=== PATIENT | male | born 1940 | race Caucasian/White ===

== ENCOUNTER → 2016-12-15 | Outpatient (CLI) | payer BC ==
[~2016-12-15] MED LIST: ALBU18002 INH; ALPR-412 PO; AMLO-114 PO; AMLO2.5T PO; AMR2 PO; ASPI81TA28 PO; ATOR-24 PO; ATOR-26 PO; AVD5 PO; CHOL2000 PO; CIPR-255 PO; CLOP1TAB54 PO; CYAN10005 PO; FLUT0.0529 NAE; GLC/500 PO; INSDGI SC; LISI-725 PO; LISI40TA PO; LORA10TA5 PO; METO-217 PO; MISCTAB30 PO; NVLGI/PEN; PANT40TA PO; SPRIN/30 INH; TAMS0.4C38 PO; TAMS0.4C59 PO; TIOTCAP INH; XNX25 PO; janumet PO; osteo biflex PO
[2016-12-15 13:32] LABS: ESTIMATED AVERAGE GLUCOSE 194 mg/dl; HA1C FLAG Normal (Normal)
[2016-12-15 13:42] LABS: BLOOD UREA NITROGEN 15 mg/dl (7-18); BUN/CREATININE RATIO 11.8 (10-20); CALCIUM 9.1 mg/dl (8.5-10.1); CARBON DIOXIDE 27 mmol/L (21-32); CHLORIDE 106 mmol/L (98-107); GLUCOSE 114 mg/dl (70-99); POTASSIUM 3.9 mmol/L (3.5-5.1); SODIUM 142 mmol/L (136-145)
== END | disposition home or self-care (01) ==
LOC: C.LABMFLN 07:50
PROVIDERS: ATTEND Family Medicine
DX: I10 Essential (primary) hypertension (principal); E11.51 Type 2 diabetes mellitus with diabetic peripheral angiopathy without gangrene

== ENCOUNTER 2017-02-03 10:40 | Inpatient (IN) | payer BC, OTHER ==
[~2017-02-03] VITALS: Ht 175.3 cm; Wt 78.8 kg
[~2017-02-03 10:40] MED LIST changes: -ALBU18002 INH; -ALPR-412 PO; -AMLO2.5T PO; -ATOR-26 PO; -CHOL2000 PO; -CYAN10005 PO; -GLC/500 PO; -INSDGI SC; -LISI-725 PO; -MISCTAB30 PO; -NVLGI/PEN; -SPRIN/30 INH; -TAMS0.4C38 PO
[2017-02-03 11:22] LABS: MEAN CELL VOLUME 89.7 fL (80-100); MEAN CORPUSCULAR HEMOGLOBIN 30.5 pg (25-34); MEAN PLATELET VOLUME 11.4 fL (7.4-10.4); PLATELET COUNT 217 K/uL (130-400); RED BLOOD COUNT 4.46 M/uL (4.7-6.1); WHITE BLOOD COUNT 6.93 K/uL (4.8-10.8)
[2017-02-03 11:31] LABS: PROTHROMBIN TIME (PATIENT) 10.7 SECONDS (9.0-12.0)
--- NOTE | 2017-02-03 11:31 | DIAGNOSTIC IMAGING REPORT ---
CHEST ONE VIEW PORTABLE CLINICAL HISTORY: chest pain and SOB dyspnea COMPARISON STUDY: 07/11/2013 FINDINGS: The bones soft tissues and hemidiaphragms are normal. The cardiomediastinal silhouette is normal. The lungs are clear. The pulmonary vasculature is normal. IMPRESSION: Negative chest. Electronically signed by: Alexx Berger M.D. 02/03/2017 11:29 AM Dictated Date/Time: 02/03/2017 11:29 AM
[2017-02-03 11:41] LABS: BUN/CREATININE RATIO 12.7 (10-20); CALCIUM 8.7 mg/dl (8.5-10.1); CREATININE 1.4 mg/dl (0.60-1.40); POTASSIUM 3.7 mmol/L (3.5-5.1)
[2017-02-03 11:50] LABS: ALB/GLOB RATIO 1.1 (0.9-2); CKMB/CK RATIO 2.1 (0-3.0)
[2017-02-03] MEDS ORDERED: TAMS0.4C38 PO (12:36)
[2017-02-03] MEDS ORDERED: ATOR-26 PO (12:36)
[2017-02-03] MEDS ORDERED: SPRIN/30 INH (12:36)
[2017-02-03] MEDS ORDERED: ALPR-412 PO (12:36)
[2017-02-03] MEDS ORDERED: AMLO2.5T PO (12:36)
[2017-02-03] MEDS ORDERED: LISI-725 PO (12:36)
[2017-02-03] MEDS ORDERED: NVLGI/PEN (12:37)
[2017-02-03] MEDS ORDERED: CYAN10005 PO (12:37)
[2017-02-03] MEDS ORDERED: MISCTAB30 PO (12:37)
[2017-02-03] MEDS ORDERED: INSDGI SC (12:37)
[2017-02-03] MEDS ORDERED: ALBU18002 INH (12:37)
[2017-02-03] MEDS ORDERED: CHOL2000 PO (12:37)
[2017-02-03] MEDS ORDERED: GLC/500 PO (12:37)
[2017-02-03] MEDS ORDERED: ASPIRIN 81 MG CHEW PO STA ×2 (12:47→13:29)
--- NOTE | 2017-02-03 12:52 | EMERGENCY ROOM VISIT NOTE ---
History Report prepared by Rebecca: Yasemin Browning Under the Supervision of: Dr. Isis Conner M.D. First contact with patient: 12:23 Chief Complaint: CARDIAC ASSESSMENT Stated Complaint: EDEMA IN FEET, ANKLES - TIGHTNESS IN CHEST Nursing Triage Summary: pt to the ED with c/o chest pain and SOB History of Present Illness The patient is a 76 year old male who presents to the Emergency Room with complaints of persistent chest discomfort that began last night. He describes it as a tightness. Last night, he had some aching in his left arm and tingling in the fingertips of his left hand as well. He develops some increased chest pain when he takes deep breaths. Recently, he has had some increased swelling in his lower extremities from his calves down through his feet. He denies recent long trips. He does not have a history of heart disease or blood clots. He has had multiple stress tests in the past which were normal. He took 81 mg Aspirin this morning. 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 He has a history of bladder cancer and skin cancer. Source of History: patient Onset: last night Position: chest Quality: other (tightness) Timing: other (persistent) Note: Other symptoms: bilateral leg swelling, achiness in left arm, tingling in left fingers Review of Systems See HPI for pertinent positives & negatives. A total of 10 systems reviewed and were otherwise negative. Past Medical & Surgical Medical Problems: (1) Bladder cancer (2) Chest pain radiating to arm (3) Diabetes (4) Skin cancer Family History No pertinent family history stated. Social History Smoking Status: Never Smoker Marital Status: Housing Status: lives with significant other Occupation Status: retired Current/Historical Medications Scheduled Amlodipine (Norvasc), 2.5 MG PO DAILY Aspirin (Aspirin Ec), 81 MG PO QAM Atorvastatin (Lipitor), 80 MG PO DAILY Cholecalciferol (Vitamin D3), 1 CAP PO QAM Cyanocobalamin (Vitamin B-12), 1,000 MCG PO QAM Insulin Glargine (Lantus), 25 UNITS SC QPM Lisinopril (Zestril), 20 MG PO DAILY Metformin Hcl (Glucophage), 500 MG PO BID Metoprolol Succinate (Toprol Xl), 50 MG PO BID Misc Natural Products (Osteo Bi-Flex Joint Shiel), 1 TAB PO BID Pantoprazole (Protonix), 40 MG PO BID Tamsulosin Hcl (Flomax), 0.4 MG PO DAILY Tiotropium [place] (Spiriva Handihaler), 1 CAP INH DAILY Scheduled PRN Alprazolam (Alprazolam), 1 TAB PO DAILY PRN for Anxiety Loratadine (Claritin), 10 MG PO DAILY PRN Miscellaneous Medications Albuterol Sulfate (Proair Respiclick), 2 PUFF INH Insulin Aspart (Novolog Flexpen) Allergies Coded Allergies: Penicillins (Verified Allergy, Intermediate, HIVES, 02/03/17) Tetracycline (Verified Adverse Reaction, Intermediate, SEVERE DIARRHEA, ) Atorvastatin (Verified Adverse Reaction, Unknown, UNKNOWN, 02/03/17) PT STILL TAKES Physical Exam Vital Signs Date Time Temp Pulse Resp B/P Pulse Ox O2 Delivery O2 Flow Rate FiO2 02/03/17 13:13 64 16 163/81 98 Nasal Cannula 2.0 02/03/17 11:56 98 Nasal Cannula 2.0 02/03/17 11:55 88 Room Air 02/03/17 11:14 Room Air 02/03/17 11:12 68 18 161/73 94 02/03/17 11:03 71 02/03/17 10:47 36.7 72 18 180/81 96 Room Air Pain Rating (0-10): 0 Physical Exam Vital signs reviewed. General: Elderly, well-appearing 76 year old male, in no significant distress, on nasal canula oxygen. HEENT: No scleral icterus, PERRLA, neck supple. Atraumatic. Cardiovascular: Regular rate and rhythm, no extra sounds. Pulmonary: Clear to auscultation bilaterally, normal work of breathing. Abdomen: Soft, nontender, nondistended, positive bowel sounds. Musculoskeletal: Atraumatic, no peripheral edema. Neurologic: Patient awake alert and oriented x 3 Skin: Warm, dry, no rash Medical Decision & Procedures ER Provider Diagnostic Interpretation: Radiology results as stated below per my review and radiologist interpretation: CHEST ONE VIEW PORTABLE CLINICAL HISTORY: chest pain and SOB dyspnea COMPARISON STUDY: 07/11/2013 FINDINGS: The bones soft tissues and hemidiaphragms are normal. The cardiomediastinal silhouette is normal. The lungs are clear. The pulmonary vasculature is normal. IMPRESSION: Negative chest. Electronically signed by: Alexx Berger M.D. 02/03/2017 11:29 AM Dictated Date/Time: 02/03/2017 11:29 AM BILATERAL LOWER EXTREMITY VENOUS DOPPLER CLINICAL HISTORY: Bilateral lower extremity edema. Chest tightness. COMPARISON STUDY: No previous studies for comparison. TECHNIQUE: Sonography of the deep venous system of the bilateral lower extremities was performed. Compression and augmentation were evaluated. FINDINGS: The bilateral common femoral, superficial femoral and popliteal veins were compressible. Augmentation was normal. Flow was shown within the deep calf vessels. IMPRESSION: No evidence of deep venous thrombus within the bilateral lower extremities. Electronically signed by: Nilay Roman M.D. 02/03/2017 2:02 PM Dictated Date/Time: 02/03/2017 2:01 PM Laboratory Results Test 02/03/17 11:05 02/03/17 12:57 Total Bilirubin 0.6 mg/dl (0.2-1) Aspartate Amino Transf (AST/SGOT) 10 U/L (15-37) Alanine Aminotransferase (ALT/SGPT) 19 U/L (12-78) Alkaline Phosphatase 94 U/L (45-117) Total Protein 6.7 gm/dl (6.4-8.2) Albumin 3.5 gm/dl (3.4-5.0) Globulin 3.2 gm/dl (2.5-4.0) Albumin/Globulin Ratio 1.1 (0.9-2) Bedside D-Dimer 432 ng/mlFEU (0-450) Bedside Troponin I 0.000 ng/ml (0-0.045) Laboratory results per my review. 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 The patient was evaluated in room C2. A complete history and physical examination was performed. 1329: Ordered Aspirin 243 mg PO. 1500: Upon reevaluation, the patient is resting comfortably. I discussed laboratory and radiographic results with him. He verbalized agreement of the treatment plan. 1519: I discussed the case with Dr. [facility]. The patient will be evaluated for further management. Medical Decision Differential diagnosis: Acute coronary syndrome, pulmonary embolus, aortic dissection, musculoskeletal pain, pneumonia, pleural effusion, pneumothorax This patient was evaluated and appeared to be in no significant distress. IV access was obtained and laboratory work was drawn. The patient was given 243 mg of aspirin acute taken 1 baby aspirin prior to arrival. Laboratory work reveals negative cardiac enzymes. EKG reveals no acute ischemic change. Chest x-ray was obtained and reveals no focal infiltrate or acute failure. Dopplers of the bilateral lower extremities are negative for DVT. The patient did have some hypoxia to 88% on room air, which is new. Due to the patient's history of vasculopathy and his complaints of chest pain with radiation, the patient will be evaluated by the hospitalist service for further management. He is aware of the plan and agrees. Consults Time Called: 1505 Consulting Physician: Dr. Mike DUGAN Hospitalist Returned Call: [phone] I discussed the case with him. The patient will be evaluated for further management. Impression Primary Impression: Chest pain radiating to arm Additional Impression: Hypoxia Scribe Attestation The scribe's documentation has been prepared under my direction and personally reviewed by me in its entirety. I confirm that the note above accurately reflects all work, treatment, procedures, and medical decision making performed by me. Departure Information Dispostion Being Evaluated By Hospitalist Referrals Benitez Lau M.D. (PCP) Patient Instructions [facility] Problem Qualifiers
--- NOTE | 2017-02-03 14:03 | DIAGNOSTIC IMAGING REPORT ---
BILATERAL LOWER EXTREMITY VENOUS DOPPLER CLINICAL HISTORY: Bilateral lower extremity edema. Chest tightness. COMPARISON STUDY: No previous studies for comparison. TECHNIQUE: Sonography of the deep venous system of the bilateral lower extremities was performed. Compression and augmentation were evaluated. FINDINGS: The bilateral common femoral, superficial femoral and popliteal veins were compressible. Augmentation was normal. Flow was shown within the deep calf vessels. IMPRESSION: No evidence of deep venous thrombus within the bilateral lower extremities. Electronically signed by: Nilay Roman M.D. 02/03/2017 2:02 PM Dictated Date/Time: 02/03/2017 2:01 PM
[2017-02-03] MEDS ORDERED: LORATADINE 10 MG TAB PO PRN (15:45)
[2017-02-03] MEDS ORDERED: ACETAMINOPHEN 325 MG TAB PO PRN (15:45)
[2017-02-03] MEDS ORDERED: NITROGLYCERIN 0.4 MG SL PER TAB CHARGE SL PRN (15:45)
[2017-02-03] MEDS ORDERED: ZOLPIDEM TARTRATE 5 MG TAB PO PRN (15:45)
[2017-02-03] MEDS ORDERED: ALBUTEROL HFA 8 GM INHALER INH PRN (15:45)
[2017-02-03] MEDS ORDERED: ALPRAZOLAM 0.25 MG TAB PO PRN (15:45)
[2017-02-03] MEDS ORDERED: GLUCAGON FOR INJ 1 MG VIAL SQ PRN (16:00)
[2017-02-03] MEDS ORDERED: DEXTROSE 50% 50 ML SYR IV PRN (16:00)
[2017-02-03] MEDS ORDERED: ONDANSETRON INJ 2 MG/ML 2 ML VIAL IV PRN (16:00)
[2017-02-03] MEDS ORDERED: GLUCOSE 10 TABS/TUBE PO PRN (16:00)
[2017-02-03] MEDS ORDERED: GLUCOSE 40% GEL 15 GM TUBE PO PRN (16:00)
[2017-02-03 17:54] VITALS: BP 159/90; PULSE 91; TEMP 36.9; Ht 175.3 cm; Wt 78.8 kg
--- NOTE | 2017-02-03 17:57 | DIAGNOSTIC IMAGING REPORT ---
LEFT UPPER EXTREMITY ARTERIAL DOPPLER STUDY HISTORY: carotid to LUE bypass, tingling in left hand COMPARISON STUDY: None. FINDINGS: Normal velocities and waveforms within the left common carotid artery. There is retrograde flow within the left vertebral artery. Monophasic but normal velocity waveforms seen within the left subclavian, axillary, and brachial arteries. Monophasic low velocity waveforms seen within the radial artery of 14 cm/s in the ulnar artery of 12 cm/s. IMPRESSION: 1. Monophasic but normal velocity waveforms seen within the left subclavian, axillary, brachial arteries. This could be due to the bypass. 2. Monophasic and low velocity waveforms seen within the radial and ulnar artery suggestive of diminished flow. 3. Retrograde flow within the left vertebral artery. Electronically signed by: Antione Santos M.D. 02/03/2017 5:56 PM Dictated Date/Time: 02/03/2017 5:53 PM
--- NOTE | 2017-02-03 18:04 | DIAGNOSTIC IMAGING REPORT ---
BILATERAL CAROTID DOPPLER STUDY HISTORY: Right arm numbness. carotid to axillary and to subclavian bypass COMPARISON: None. TECHNIQUE: Real-time, grayscale, and color Doppler sonography of the carotid arteries was performed. Imaging reviewed in the transverse and longitudinal planes. All measurements were calculated based on NASCET criteria. FINDINGS: Retrograde flow within the left vertebral artery. Antegrade flow in the right vertebral artery. Mild calcified plaque within the bilateral carotid bifurcations. The peak systolic velocity within the right ICA is 108 cm/s. The right systolic ratio is 1.3. The peak systolic velocity within the left ICA is 97 cm/s. The left systolic ratio is 1.1. IMPRESSION: No hemodynamically significant stenosis seen within the carotid arteries. Retrograde flow within the left vertebral artery. Electronically signed by: Antione Santos M.D. 02/03/2017 6:02 PM Dictated Date/Time: 02/03/2017 6:00 PM
[2017-02-03 18:08] LABS: CKMB/CK RATIO 2.7 (0-3.0)
[2017-02-03 20:05] VITALS: BP 144/65; PULSE 70; TEMP 36.4; O2SAT 96
[2017-02-03] MEDS ORDERED: INSULIN GLARGINE SOLOSTAR 100 UNITS/ML 3 ML PEN SC SCH (21:00)
--- NOTE | 2017-02-03 21:03 | History and Physical ---
History & Physical Date & Time of Service: Feb 03, 2017 at 20:47 Chief Complaint: Chest Pain Radiating To Arm Primary Care Physician: Benitez Lau M.D. History of Present Illness Source: patient, spouse The patient is a 76-year-old male who presents to emergency department with chest tightness, accompanied by left arm aching and left hand tingling that began the previous night. He also recently developed some swelling in his lower extremities that does improve when he is off his feet. He has not had any recent travel, does not have any significant salt in his diet, and does not have a sedentary lifestyle. 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 Past Medical/Surgical History Medical Problems: (1) Bladder cancer Status: Resolved (2) Diabetes Status: Chronic (3) Skin cancer Status: Resolved Social History Smoking Status: Former Smoker Smokeless Tobacco Use: No Alcohol Use: none Drug Use: none Marital Status: Housing status: lives with family Occupational Status: retired Multi-Drug Resistant Organisms History of MDRO: No Allergies Coded Allergies: Penicillins (Verified Allergy, Intermediate, HIVES, 02/03/17) Tetracycline (Verified Adverse Reaction, Intermediate, SEVERE DIARRHEA, ) Atorvastatin (Verified Adverse Reaction, Unknown, UNKNOWN, 02/03/17) PT STILL TAKES Home Medications Scheduled Amlodipine (Norvasc), 2.5 MG PO DAILY Aspirin (Aspirin Ec), 81 MG PO QAM Atorvastatin (Lipitor), 80 MG PO DAILY Cholecalciferol (Vitamin D3), 1 CAP PO QAM Cyanocobalamin (Vitamin B-12), 1,000 MCG PO QAM Insulin Glargine (Lantus), 25 UNITS SC QPM Lisinopril (Zestril), 20 MG PO DAILY Metformin Hcl (Glucophage), 500 MG PO BID Metoprolol Succinate (Toprol Xl), 50 MG PO BID Misc Natural Products (Osteo Bi-Flex Joint Shiel), 1 TAB PO BID Pantoprazole (Protonix), 40 MG PO BID Tamsulosin Hcl (Flomax), 0.4 MG PO DAILY Tiotropium [place] (Spiriva Handihaler), 1 CAP INH DAILY Scheduled PRN Alprazolam (Alprazolam), 1 TAB PO DAILY PRN for Anxiety Loratadine (Claritin), 10 MG PO DAILY PRN Miscellaneous Medications Albuterol Sulfate (Proair Respiclick), 2 PUFF INH Insulin Aspart (Novolog Flexpen) Review of Systems The patient denies palpitations, cough, vision change, hearing change, sore throat, fevers, chills, sweats, weight change, fatigue, nausea, vomiting, abdominal pain, pelvic pain, blood in urine or stool, dysuria, urinary frequency or urgency, lightheadedness, dizziness, headache, memory loss, rash, abnormal bruising or bleeding, imbalance, focal or generalized weakness, numbness or tingling in legs, arthralgias or myalgias, back or neck pain, night sweats, or allergy symptoms. The review of systems is otherwise negative other than for that already noted above, and at least 10 systems have been reviewed. Physical Exam Vital Signs Date Time Temp Pulse Resp B/P Pulse Ox O2 Delivery O2 Flow Rate FiO2 02/03/17 20:05 36.4 70 17 144/65 96 Room Air 02/03/17 18:10 88 18 98 02/03/17 17:54 36.9 91 18 159/90 Room Air 02/03/17 16:00 67 18 152/78 98 Nasal Cannula 2.0 02/03/17 13:13 64 16 163/81 98 Nasal Cannula 2.0 02/03/17 11:56 98 Nasal Cannula 2.0 02/03/17 11:55 88 Room Air 02/03/17 11:14 Room Air 02/03/17 11:12 68 18 161/73 94 02/03/17 11:03 71 02/03/17 10:47 36.7 72 18 180/81 96 Room Air The patient is awake, well-developed and adequately nourished, alert and oriented 3, normocephalic and atraumatic, lying in bed and in no acute distress. HEENT--PERRL, EOMI, mucous membranes and oropharynx dry. Neck--supple, no JVD or bruits, thyroid normal, trachea midline, no adenopathy. Heart--normal S1 and S2, no extra beats, no murmurs, rubs or gallops. Lungs--clear bilaterally with good air movement, no respiratory distress, no accessory muscle use. Abdomen--normal bowel sounds and soft, nontender and nondistended, no hernias or masses, no organomegaly. Extremities--no cyanosis, clubbing. There is bilaterally trace pretibial and pedal pitting Edema. There are good distal pulses b/l. Dermatologic--normal skin turgor, normal color, warm and dry, no abnormal lymph nodes, no rash. Neurologic--cranial nerves II through XII grossly intact, motor and sensory examination normal. Rheumatologic--normal range of motion, nontender, muscles and joints. Psychiatric--normal affect. Diagnostics Laboratory Results Results Past 24 Hours Test 02/03/17 11:05 02/03/17 11:12 02/03/17 12:57 02/03/17 16:06 Range/Units White Blood Count 6.93 4.8-10.8 K/uL Red Blood Count 4.46 4.7-6.1 M/uL Hemoglobin 13.6 14.0-18.0 g/dL Hematocrit 40.0 42-52 % Mean Corpuscular Volume 89.7 80-100 fL Mean Corpuscular Hemoglobin 30.5 25-34 pg Mean Corpuscular Hemoglobin Concent 34.0 32-36 g/dl RDW Standard Deviation 43.3 36.4-46.3 fL RDW Coefficient of Variation 13.2 11.5-14.5 % Platelet Count 217 130-400 K/uL Mean Platelet Volume 11.4 7.4-10.4 fL Prothrombin Time 10.7 9.0-12.0 SECONDS Prothromb Time International Ratio 1.0 0.9-1.1 Activated Partial Thromboplast Time 26.3 21.0-31.0 SECONDS Partial Thromboplastin Ratio 1.0 Sodium Level 141 136-145 mmol/L Potassium Level 3.7 3.5-5.1 mmol/L Chloride Level 106 98-107 mmol/L Carbon Dioxide Level 31 21-32 mmol/L Anion Gap 4.0 3-11 mmol/L Blood Urea Nitrogen 18 7-18 mg/dl Creatinine 1.40 0.60-1.40 mg/dl Est Creatinine Clear Calc Drug Dose 45.6 ml/min Estimated GFR () 56.6 Estimated GFR (Non- 48.8 BUN/Creatinine Ratio 12.7 10-20 Random Glucose 235 70-99 mg/dl Calcium Level 8.7 8.5-10.1 mg/dl Total Bilirubin 0.6 0.2-1 mg/dl Aspartate Amino Transf (AST/SGOT) 10 15-37 U/L Alanine Aminotransferase (ALT/SGPT) 19 12-78 U/L Alkaline Phosphatase 94 45-117 U/L Total Creatine Kinase 48 39-308 U/L Creatine Kinase MB 1.0 0.5-3.6 ng/ml Creatine Kinase MB Ratio 2.1 0-3.0 Total Protein 6.7 6.4-8.2 gm/dl Albumin 3.5 3.4-5.0 gm/dl Globulin 3.2 2.5-4.0 gm/dl Albumin/Globulin Ratio 1.1 0.9-2 Bedside Troponin I 0.000 0.000 0-0.045 ng/ml Bedside D-Dimer 432 0-450 ng/mlFEU Bedside Glucose 116 70-99 mg/dl Test 02/03/17 17:32 02/03/17 20:30 Range/Units Total Creatine Kinase 41 39-308 U/L Creatine Kinase MB 1.1 0.5-3.6 ng/ml Creatine Kinase MB Ratio 2.7 0-3.0 Troponin I < 0.015 0-0.045 ng/ml Bedside Glucose 197 70-99 mg/dl Diagnostic Radiology Patient Name: ERIKA CALLAHAN Unit Number: [id number] Dictated: 02/03/171128 Transcribed: 02/03/171128 MS Printed Date/Time: [~ rep prt dt]/[~ rep prt tm] [~ rep ct labl] - [~ rep ct ivnm] [facility] [place] [address] Dictated: 02/03/171128 Transcribed: 02/03/17 112 MS Printed Date/Time: [~ rep prt dt]/[~ rep prt tm] [~ rep ct labl] - [~ rep ct ivnm] CHEST ONE VIEW PORTABLE CLINICAL HISTORY: chest pain and SOB dyspnea COMPARISON STUDY: 07/11/2013 FINDINGS: The bones soft tissues and hemidiaphragms are normal. The cardiomediastinal silhouette is normal. The lungs are clear. The pulmonary vasculature is normal. IMPRESSION: Negative chest. Electronically signed by: Alexx Berger M.D. 02/03/2017 11:29 AM Dictated Date/Time: 02/03/2017 11:29 AM The status of this report is Signed. Draft = Not yet reviewed or approved by Radiologist. Signed = Reviewed and approved by Radiologist. <AttendingPhy></AttendingPhy> <FamilyPhy>Benitez Lau M.D.</FamilyPhy> < PrimaryPhy>Benitez Lau M.D.</PrimaryPhy> <UnitNumber>[id number]</UnitNumber> < VisitNumber>[id number]</VisitNumber> <PatientName>ERIKA CALLAHAN</PatientName > <DateOfBirth>1940</DateOfBirth> <Location>[facility]</Location> <ServiceDate> 02/03/17</ServiceDate> <MNE>ESINDI</MNE> <OrderingPhy>ED, PROTOCOL</OrderingPhy > <OrderingPhyMNE>f rep ord dr vaca</OrderingPhyMNE> <DictatingPhyMNE>f rep dict dr vaca</DictatingPhyMNE> <CCListMNE>f rep ct mne</CCListMNE> <AdmittingPhyMNE>f pt admit dr vaca</AdmittingPhyMNE> <AttendingPhyMNE>f pt attend dr vaca</ AttendingPhyMNE> <ConsultingPhyMNE>f pt consult dr vaca</ConsultingPhyMNE> <FamilyPhyMNE>f pt fam dr vaca</FamilyPhyMNE> <OtherPhyMNE>f pt other dr vaca</OtherPhyMNE> < PrimaryPhyMNE>f pt prim care dr vaca</PrimaryPhyMNE> <ReferringPhyMNE>f pt referring dr vaca</ReferringPhyMNE> Patient Name: ERIKA CALLAHAN Unit Number: [id number] Dictated: 02/03/17 140 Transcribed: 02/03/17 140 JA Printed Date/Time: [~ rep prt dt]/[~ rep prt tm] [~ rep ct labl] - [~ rep ct ivnm] [facility] [place] [address] Dictated: 02/03/17 140 Transcribed: 02/03/17 1401 JA Printed Date/Time: [~ rep prt dt]/[~ rep prt tm] [~ rep ct labl] - [~ rep ct ivnm] [~ rep ct add3]] BILATERAL LOWER EXTREMITY VENOUS DOPPLER CLINICAL HISTORY: Bilateral lower extremity edema. Chest tightness. COMPARISON STUDY: No previous studies for comparison. TECHNIQUE: Sonography of the deep venous system of the bilateral lower extremities was performed. Compression and augmentation were evaluated. FINDINGS: The bilateral common femoral, superficial femoral and popliteal veins were compressible. Augmentation was normal. Flow was shown within the deep calf vessels. IMPRESSION: No evidence of deep venous thrombus within the bilateral lower extremities. Electronically signed by: Nilay Roman M.D. 02/03/2017 2:02 PM Dictated Date/Time: 02/03/2017 2:01 PM The status of this report is Signed. Draft = Not yet reviewed or approved by Radiologist. Signed = Reviewed and approved by Radiologist. <AttendingPhy></AttendingPhy> <FamilyPhy>Benitez Lau M.D.</FamilyPhy> < PrimaryPhy>Benitez Lau M.D.</PrimaryPhy> <UnitNumber>[id number]</UnitNumber> < VisitNumber>[id number]</VisitNumber> <PatientName>ERIKA CALLAHAN</PatientName > <DateOfBirth>1940</DateOfBirth> <Location>[facility]</Location> <ServiceDate> 02/03/17</ServiceDate> <MNE>ESINDI</MNE> <OrderingPhy>Isis Conner M.D. </OrderingPhy> <OrderingPhyMNE>f rep ord dr vaca</OrderingPhyMNE> < DictatingPhyMNE>f rep dict dr vaca</DictatingPhyMNE> <CCListMNE>f rep ct mne</ CCListMNE> <AdmittingPhyMNE>f pt admit dr vaca</AdmittingPhyMNE> <AttendingPhyMNE >f pt attend dr vaca</AttendingPhyMNE> <ConsultingPhyMNE>f pt consult dr vaca</ConsultingPhyMNE> <FamilyPhyMNE>f pt fam dr vaca</FamilyPhyMNE> <OtherPhyMNE>f pt other dr vaca</OtherPhyMNE> < PrimaryPhyMNE>f pt prim care dr vaca</PrimaryPhyMNE> <ReferringPhyMNE>f pt referring dr vaca</ReferringPhyMNE> Patient Name: ERIKA CALLAHAN Unit Number: [id number] Dictated: 02/03/171752 Transcribed: 02/03/171752 PAJ Printed Date/Time: [~ rep prt dt]/[~ rep prt tm] [~ rep ct labl] - [~ rep ct ivnm] [facility] [place] [address] Dictated: 02/03/171752 Transcribed: 02/03/171752 PAJ Printed Date/Time: [~ rep prt dt]/[~ rep prt tm] [~ rep ct labl] - [~ rep ct ivnm] LEFT UPPER EXTREMITY ARTERIAL DOPPLER STUDY HISTORY: carotid to LUE bypass, tingling in left hand COMPARISON STUDY: None. FINDINGS: Normal velocities and waveforms within the left common carotid artery. There is retrograde flow within the left vertebral artery. Monophasic but normal velocity waveforms seen within the left subclavian, axillary, and brachial arteries. Monophasic low velocity waveforms seen within the radial artery of 14 cm/s in the ulnar artery of 12 cm/s. IMPRESSION: 1. Monophasic but normal velocity waveforms seen within the left subclavian, axillary, brachial arteries. This could be due to the bypass. 2. Monophasic and low velocity waveforms seen within the radial and ulnar artery suggestive of diminished flow. 3. Retrograde flow within the left vertebral artery. Electronically signed by: Antione Santos M.D. 02/03/2017 5:56 PM Dictated Date/Time: 02/03/2017 5:53 PM The status of this report is Signed. Draft = Not yet reviewed or approved by Radiologist. Signed = Reviewed and approved by Radiologist. <AttendingPhy></AttendingPhy> <FamilyPhy>Benitez Lau M.D.</FamilyPhy> < PrimaryPhy>Benitez Lau M.D.</PrimaryPhy> <UnitNumber>[id number]</UnitNumber> < VisitNumber>[id number]</VisitNumber> <PatientName>ERIKA CALLAHAN</PatientName > <DateOfBirth>1940</DateOfBirth> <Location>[facility]</Location> <ServiceDate> 02/03/17</ServiceDate> <MNE>ESINDI</MNE> <OrderingPhy>Tal Mckeon M.D.< /OrderingPhy> <OrderingPhyMNE>f rep ord dr vaca</OrderingPhyMNE> <DictatingPhyMNE >f rep dict dr vaca</DictatingPhyMNE> <CCListMNE>f rep ct mne</CCListMNE> < AdmittingPhyMNE>f pt admit dr vaca</AdmittingPhyMNE> <AttendingPhyMNE>f pt attend dr vaca</AttendingPhyMNE> <ConsultingPhyMNE>f pt consult dr vaca</ConsultingPhyMNE> <FamilyPhyMNE>f pt fam dr vaca</FamilyPhyMNE> <OtherPhyMNE>f pt other dr vaca</OtherPhyMNE> < PrimaryPhyMNE>f pt prim care dr vaca</PrimaryPhyMNE> <ReferringPhyMNE>f pt referring dr vaca</ReferringPhyMNE> Patient Name: ERIKA CALLAHAN Unit Number: [id number] Dictated: 02/03/171799 Transcribed: 02/03/171799 PA Printed Date/Time: [~ rep prt dt]/[~ rep prt tm] [~ rep ct labl] - [~ rep ct ivnm] [facility] [place] [address] Dictated: 02/03/171799 Transcribed: 02/03/17 1800 PAJ Printed Date/Time: [~ rep prt dt]/[~ rep prt tm] [~ rep ct labl] - [~ rep ct ivnm] BILATERAL CAROTID DOPPLER STUDY HISTORY: Right arm numbness. carotid to axillary and to subclavian bypass COMPARISON: None. TECHNIQUE: Real-time, grayscale, and color Doppler sonography of the carotid arteries was performed. Imaging reviewed in the transverse and longitudinal planes. All measurements were calculated based on NASCET criteria. FINDINGS: Retrograde flow within the left vertebral artery. Antegrade flow in the right vertebral artery. Mild calcified plaque within the bilateral carotid bifurcations. The peak systolic velocity within the right ICA is 108 cm/s. The right systolic ratio is 1.3. The peak systolic velocity within the left ICA is 97 cm/s. The left systolic ratio is 1.1. IMPRESSION: No hemodynamically significant stenosis seen within the carotid arteries. Retrograde flow within the left vertebral artery. Electronically signed by: Antione Santos M.D. 02/03/2017 6:02 PM Dictated Date/Time: 02/03/2017 6:00 PM The status of this report is Signed. Draft = Not yet reviewed or approved by Radiologist. Signed = Reviewed and approved by Radiologist. <AttendingPhy></AttendingPhy> <FamilyPhy>Benitez Lau M.D.</FamilyPhy> < PrimaryPhy>Benitez Lau M.D.</PrimaryPhy> <UnitNumber>[id number]</UnitNumber> < VisitNumber>[id number]</VisitNumber> <PatientName>ERIKA CALLAHAN</PatientName > <DateOfBirth>1940</DateOfBirth> <[facility]> <ServiceDate> 02/03/17</ServiceDate> <MNE>ESINDI</MNE> <OrderingPhy>Tal Mckeon M.D.< /OrderingPhy> <OrderingPhyMNE>f rep ord dr vaca</OrderingPhyMNE> <DictatingPhyMNE >f rep dict dr vaca</DictatingPhyMNE> <CCListMNE>f rep ct [place]</CCListMNE> < AdmittingPhyMNE>f pt admit dr vaca</AdmittingPhyMNE> <AttendingPhyMNE>f pt attend dr vaca</AttendingPhyMNE> <ConsultingPhyMNE>f pt consult dr vaca</ConsultingPhyMNE> <FamilyPhyMNE>f pt fam dr vaca</FamilyPhyMNE> <OtherPhyMNE>f pt other dr vaca</OtherPhyMNE> < PrimaryPhyMNE>f pt prim care dr vaca</PrimaryPhyMNE> <ReferringPhyMNE>f pt referring dr vaca</ReferringPhyMNE> EKG EKG shows normal sinus rhythm at 70 bpm, old anterior IN and is new compared to 07/11/2013. Isolated Q-wave in lead III. Impression Assessment and Plan Chest tightness with radiation to left upper extremity/hypertension--the patient will be admitted to the telemetry unit, for serial cardiac enzymes, cardiac rhythm monitoring and a 2-D echocardiogram with Dopplers. He does have a history of 2 bypasses as discussed earlier and Doppler studies of the carotid arteries and left upper extremity circulation does report intact flow. His EKG does show a new anterior IN compared to previous EKG. If the above workup is negative, he will at the very least need a stress test prior to discharge, although he reports he's had several negative stress tests in the past, and therefore might be considered for a cardiac catheterization. We'll continue enteric-coated aspirin 81 mg by mouth daily, amlodipine 2.5 mg by mouth daily, lisinopril 20 mg by mouth daily, and metoprolol succinate 50 mg by mouth twice a day. If he develops a return of symptoms, he will need to be started on a heparin drip. Hypercholesterolemia--continue atorvastatin 80 mg by mouth daily. Diabetes mellitus--continue Lantus insulin 25 units subcutaneous every afternoon , and hold metformin 500 mg by mouth twice a day. Place on Accu-Cheks before meals and at bedtime with NovoLog coverage. GERD--continue pantoprazole 40 mg by mouth twice a day. BPH--continue tamsulosin 0.4 mg by mouth daily, will need to monitor closely if nitroglycerin or added to his regimen. Vitamin B12 deficiency--continue 1000 g by mouth every morning supplement. COPD--continue Spiriva 1 inhalation every morning, and pro-air HFA 2 puffs 4 times a day when necessary instead of Respiclick. Level of Care Telemetry Advanced Directives Existing Advance Directive: No Existing Living Will: Yes Existing Power of Roper Operator: Yes Resuscitation Status FULL RESUSCITATION VTE Prophylaxis VTE Risk Assessment Done? Y/N: Yes Risk Level: Moderate Given or contraindicated: SCD's
[2017-02-03] MEDS: PANTOprazole SOD 40 MG TAB PO SCH (21:06)
[2017-02-03] MEDS: METOPROLOL SUCC 50MG EXT REL TAB PO SCH (21:06)
[2017-02-03] MEDS: INSULIN ASPART 100 UNITS/ML 3 ML PEN SC SCH (21:08)
[2017-02-03 23:30] VITALS: BP 126/67; PULSE 66; TEMP 36.8; O2SAT 97
[2017-02-03 23:53] LABS: CKMB/CK RATIO 2.5 (0-3.0)
[2017-02-04] VITALS (7 sets, daily range): BP systolic 77–171; BP diastolic 38–76; PULSE 56–76; TEMP 36.7–37.1; O2SAT 94–98
[2017-02-04] MEDS: PANTOprazole SOD 40 MG TAB PO SCH (07:58)
[2017-02-04] MEDS: METOPROLOL SUCC 50MG EXT REL TAB PO SCH (07:59)
[2017-02-04 08:02] LABS: PROTHROMBIN TIME (PATIENT) 11.2 SECONDS (9.0-12.0)
[2017-02-04 08:22] LABS: BLOOD UREA NITROGEN 15 mg/dl (7-18); BUN/CREATININE RATIO 13.2 (10-20); CARBON DIOXIDE 26 mmol/L (21-32); CHLORIDE 108 mmol/L (98-107); GLUCOSE 84 mg/dl (70-99); MAGNESIUM 1.7 mg/dl (1.8-2.4); POTASSIUM 3.7 mmol/L (3.5-5.1); SODIUM 144 mmol/L (136-145)
[2017-02-04 08:27] LABS: CKMB/CK RATIO 2.3 (0-3.0)
[2017-02-04] MEDS: INSULIN ASPART 100 UNITS/ML 3 ML PEN SC SCH ×2 (08:50→13:00)
[2017-02-04] MEDS ORDERED: CYANOCOBALAMIN 500 MCG TAB (VIT B-12) PO SCH (09:00)
[2017-02-04] MEDS ORDERED: TIOTROPIUM BROMIDE 5 PUFF/90 MCG INH INH SCH (09:00)
[2017-02-04] MEDS ORDERED: ATORVASTATIN 40 MG TAB PO SCH (09:00)
[2017-02-04] MEDS ORDERED: TAMSULOSIN HCL 0.4 MG CAP PO SCH (09:00)
[2017-02-04] MEDS ORDERED: ASPIRIN 81 MG ECTAB PO SCH (09:00)
[2017-02-04] MEDS ORDERED: CHOLECALCIFEROL 1000 INTER.UNIT TAB PO SCH (09:00)
[2017-02-04] MEDS ORDERED: LISINOPRIL 20 MG TAB PO SCH (09:00)
[2017-02-04] MEDS ORDERED: AMLODIPINE BESYLATE 5 MG TAB PO SCH (09:00)
[2017-02-04] MEDS ORDERED: METOPROLOL TARTRATE 1 MG/ML VIAL ONE (10:10)
[2017-02-04] MEDS ORDERED: DOBUTamine HCL 12.5 MG/ML 20 ML VIAL ONE (10:10)
[2017-02-04] MEDS ORDERED: ATROPINE SULFATE 0.1 MG/ML 5ML SYR ONE (10:10)
[2017-02-04 10:28] LABS: BASO % 0.1 %; BASO ABS # 0.01 K/uL (0-0.2); COMPLETE YES; IG% 0.1 %; LYMPH % 23.2 %; LYMPH ABS # 1.65 K/uL (1.2-3.4); MEAN CELL VOLUME 87.8 fL (80-100); MEAN CORPUSCULAR HEMOGLOBIN 29.6 pg (25-34); MEAN CORPUSCULAR HGB CONC 33.7 g/dl (32-36); MEAN PLATELET VOLUME 11.2 fL (7.4-10.4); MONO % 9.4 %; NEUT % 61.2 %; PLATELET COUNT 208 K/uL (130-400); RED BLOOD COUNT 4.33 M/uL (4.7-6.1); WHITE BLOOD COUNT 7.11 K/uL (4.8-10.8)
--- NOTE | 2017-02-04 10:50 | CARDIOLOGY CONSULTATION ---
DATE OF CONSULTATION: 02/04/2017 DATE OF CONSULTATION: 02/04/2017. TIME: 9:53 a.m. CONSULTING PHYSICIAN: Dr. Mckeon. REASON FOR CONSULTATION: Chest pain with left arm pain and hand discomfort. HISTORY OF PRESENT ILLNESS: Mr. Mcgrath is a pleasant 76-year-old gentleman with a history significant for nonobstructive CAD diagnosed in , severe peripheral arterial disease including left subclavian artery occlusion with 2 failed bypass grafts, right superficial femoral artery angioplasty, bladder cancer, dyslipidemia, hypertension, and diabetes. He was last seen in the office on 01/18/2017 and was doing well from a cardiac standpoint without chest discomfort. He was hospitalized however yesterday with chest discomfort. Approximately 2 days ago just before bed, he had a coughing spell and with this sharp chest discomfort in the center of his chest towards the right side of his chest. There was sputum production. He admits he has been having sinus issues. The chest discomfort lasted only a few seconds. There was no radiation of the pain, shortness of breath, or diaphoresis. Then throughout the day yesterday, he had intermittent chest pressure, which was a central chest pressure that occurred both with coughing and without coughing episodes. It occurred only at rest with the longest episode only 1 minute in duration. There were no exertional symptoms. There was no radiation of the pain, no shortness of breath and no diaphoresis. He did have 1 episode of left forearm achiness that was independent of his chest discomfort, lasting a few minutes. Otherwise, he has his chronic tingling in his left and right fingers, the left being worse than the right. He denies exertional chest discomfort and exertion is limited by claudication. He is followed by vascular surgery, Dr. Jacobs at [facility]. He denies fevers, chills, abdominal pain, nausea, vomiting, syncope, near syncope, palpitations, orthopnea, melena, hematochezia, hematuria, or other bleeding. He did notice some bilateral lower extremity edema fpc to his knees for the past week; however, believes that they have returned to normal while hospitalized despite no intervention. He was planning on leaving town today to [place], but because of his intermittent symptoms yesterday called his PCP who referred him to the Emergency Department. He is currently chest pain free and feels well. REVIEW OF SYSTEMS: As above and review of systems otherwise negative. PAST MEDICAL HISTORY: 1. Nonobstructive CAD diagnosed in . 2. Peripheral arterial disease including left common carotid artery to subclavian artery bypass which has since become occluded. 3. Left common carotid artery to axillary artery bypass at [facility], which has since become occluded. 4. Right superficial femoral artery angioplasty 2010 at [facility] followed by Dr. Jacobs. 5. Dyslipidemia. 6. Hypertension. 7. GERD. 8. COPD. 9. Chronic pancreatitis. 10. BPH. 11. Anemia. 12. History of hypotension. 13. Malignant tumor of the urinary bladder. 14. Rotator cuff tendinitis. 15. Type 2 diabetes. 16. Urethral stricture. 17. Vitamin B12 deficiency. 18. Vitamin D deficiency. 19. Venous insufficiency. HOME MEDICATIONS: Include amlodipine 2.5 mg daily, atorvastatin 80 mg daily, lisinopril 20 mg daily, Protonix 40 mg b.i.d., metoprolol succinate 50 mg b.i.d., Lantus, Metformin, aspirin 81 mg daily. Please see home list. INPATIENT MEDICATIONS: Include aspirin 81 mg daily, Lipitor 80 mg daily, amlodipine 2.5 mg daily, lisinopril 20 mg daily, metoprolol succinate 50 mg p.o. b.i.d., Protonix 40 mg p.o. b.i.d. ALLERGIES: INCLUDE PENICILLIN, TETRACYCLINE AND HCTZ. SOCIAL HISTORY: Quit smoking several years ago after less than 20 pack years. Rare alcohol. He is and lives with his . Three children. Many grandchildren. 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 He is currently alone in on his hospital room. FAMILY HISTORY: No known premature CAD. PHYSICAL EXAMINATION: VITAL SIGNS: Temperature 36.7 degrees, heart rate 63 beats per minute, respiration rate 18, blood pressure 171/76 mmHg. He was described as being hypotensive at 5:27 a.m. this morning; however, was completely asymptomatic and was not aware of this. Oxygen saturation 94% on room air. Weight 78.8 kg. GENERAL: No acute distress. He is alert and oriented. HEAD, EYES, EARS, NOSE, AND THROAT: Anicteric sclerae. NECK: No appreciable JVD. Normal carotid upstrokes bilaterally. Bilateral carotid bruits, left greater than right. CARDIAC EXAMINATION: PMI was nonpalpable. There was no ventricular heave. Regular, normal S1, S2. No audible murmurs, rubs or gallops. LUNGS: Clear to auscultation bilaterally without wheezes, rales or rhonchi. ABDOMEN: Soft, nontender, nondistended, normoactive bowel sounds, no bruits. EXTREMITIES: 2+ right radial pulse. 1+ left radial pulse. 1+ bilateral posterior tibialis pulse. No cyanosis. No pitting edema. PSYCHIATRIC: Affect appears appropriate. ECG personally reviewed. Sinus rhythm at 70 beats per minute. Possible anterior infarct. LABORATORY DATA: White blood cell count 6.93, hemoglobin 13.6, platelets 217. Sodium 144, potassium 3.7, BUN 15, creatinine 1.1, magnesium 1.7. Troponin undetectable x3. Telemetry personally reviewed. No arrhythmia. Carotid artery duplex report reviewed. No hemodynamically significant stenosis within carotid arteries reported by radiology. Lower extremity duplex without DVT per radiology. Chest x-ray report reviewed. No acute abnormality per radiology. Echocardiogram images from this morning were personally reviewed. Normal LV systolic function without wall motion abnormalities. No significant valvular abnormalities noted. Full report to follow after formal review. ASSESSMENT AND PLAN: 1. Chest pain: Chest pain a bit atypical and that occurs only at rest; however, he has documented nonocclusive CAD in the past and has severe atherosclerotic disease in peripheral arteries and multiple risk factors. We discussed ischemic evaluation possibilities such as coronary angiography versus stress testing. Given some atypical qualities and his preference, it is reasonable to start with noninvasive measures. Myocardial perfusion study was considered; however, he had coffee this morning. Therefore, we will attempt dobutamine stress echo and hopefully his heart rate can reach target despite metoprolol dosing. If abnormal, would consider coronary angiography. Risks and benefits were discussed with him. 2. Coronary artery disease: Nonobstructive in the ; however, could certainly have developed obstructive disease since then. Continue antiplatelet therapy, beta stacey, and high intensity statin therapy. Ischemic evaluation as above. 3. Peripheral arterial disease: Followed by Dr. Jacobs at [facility]. He has claudication symptoms which limit his exertion and therefore exercise stress echo not a good option. His left hand tingling and left forearm pain could be secondary to peripheral arterial disease. These symptoms do not correlate with his chest pain and are not likely from ischemic heart disease. This is especially due to the fact that his tingling in his hands have been present chronically. 4. Dyslipidemia: Continue high intensity statin therapy. 5. Hypertension: Blood pressure has been elevated; however, has been well controlled in the office. He admits that he is a bit nervous/anxious. Can titrate lisinopril if necessary. 6. Disposition: Plan of care has been discussed with Dr. Hernandez of the primary hospitalist service. Dobutamine stress echo will be performed later today. Thank you for allowing me to participate in the care of Mr. Mcgrath.
--- NOTE | 2017-02-04 12:19 | Hospitalist Progress Note ---
Hospitalist Progress Note Date of Service Feb 04, 2017. (Lana Patel PA-C) Subjective Pt evaluation today including: conversation w/ patient, physical exam, chart review, lab review, review of studies The patient was seen and examined this morning. Pt reports doing well today, he denies chest tightness, chest pain, shortness of breath, headache, lightheadedness or dizziness. The patient slept well overnight. Pt just had stress echo completed and results are pending. His plans to come in later this afternoon. All Other Systems: Reviewed and Negative (other than listed in HPI) (Lana Patel, MANDA) Objective Vital Signs Date Time Temp Pulse Resp B/P Pulse Ox O2 Delivery O2 Flow Rate FiO2 02/04/17 08:25 Room Air 02/04/17 07:35 36.7 63 18 171/76 94 02/04/17 05:27 Room Air 02/04/17 04:32 36.9 62 18 122/62 94 Nasal Cannula 2.0 02/04/17 04:00 98 Nasal Cannula 2.0 02/04/17 00:00 98 Room Air 2.0 02/04/17 00:00 98 Nasal Cannula 2.0 02/03/17 23:30 36.8 66 16 126/67 97 Nasal Cannula 2.0 02/03/17 20:05 36.4 70 17 144/65 96 Room Air 02/03/17 18:10 88 18 98 02/03/17 17:54 36.9 91 18 159/90 Room Air 02/03/17 16:00 67 18 152/78 98 Nasal Cannula 2.0 02/03/17 13:13 64 16 163/81 98 Nasal Cannula 2.0 02/03/17 11:56 98 Nasal Cannula 2.0 02/03/17 11:55 88 Room Air (Lana Patel, MANDA) Physical Exam General Appearance: WD/WN, no apparent distress, + thin Eyes: PERRL, EOMI ENT: hearing grossly normal, pharynx normal Neck: supple, no JVD Respiratory/Chest: lungs clear, normal breath sounds, no respiratory distress, no accessory muscle use Cardiovascular: regular rate, rhythm, no murmur Abdomen: normal bowel sounds, non tender, soft, no organomegaly Extremities: non-tender, no pedal edema, no calf tenderness Neurologic/Psychiatric: alert, normal mood/affect, oriented x 3 Skin: normal color, warm/dry (Lana Patel PA-C) Laboratory Results Last 24 Hours Test 02/03/17 12:57 02/03/17 16:06 02/03/17 17:32 02/03/17 20:30 Bedside D-Dimer 432 ng/mlFEU Bedside Troponin I 0.000 ng/ml Bedside Glucose 116 mg/dl 197 mg/dl Total Creatine Kinase 41 U/L Creatine Kinase MB 1.1 ng/ml Creatine Kinase MB Ratio 2.7 Troponin I < 0.015 ng/ml Test 02/03/17 23:14 02/03/17 23:20 02/04/17 07:32 02/04/17 07:42 Bedside Glucose 238 mg/dl 84 mg/dl Total Creatine Kinase 36 U/L 40 U/L Creatine Kinase MB 0.9 ng/ml 0.9 ng/ml Creatine Kinase MB Ratio 2.5 2.3 Troponin I < 0.015 ng/ml < 0.015 ng/ml White Blood Count 7.11 K/uL Red Blood Count 4.33 M/uL Hemoglobin 12.8 g/dL Hematocrit 38.0 % Mean Corpuscular Volume 87.8 fL Mean Corpuscular Hemoglobin 29.6 pg Mean Corpuscular Hemoglobin Concent 33.7 g/dl Platelet Count 208 K/uL Mean Platelet Volume 11.2 fL Neutrophils (%) (Auto) 61.2 % Lymphocytes (%) (Auto) 23.2 % Monocytes (%) (Auto) 9.4 % Eosinophils (%) (Auto) 6.0 % Basophils (%) (Auto) 0.1 % Neutrophils # (Auto) 4.34 K/uL Lymphocytes # (Auto) 1.65 K/uL Monocytes # (Auto) 0.67 K/uL Eosinophils # (Auto) 0.43 K/uL Basophils # (Auto) 0.01 K/uL RDW Standard Deviation 42.0 fL RDW Coefficient of Variation 13.0 % Immature Granulocyte % (Auto) 0.1 % Immature Granulocyte # (Auto) 0.01 K/uL Prothrombin Time 11.2 SECONDS Prothromb Time International Ratio 1.0 Activated Partial Thromboplast Time 25.7 SECONDS Partial Thromboplastin Ratio 1.0 Sodium Level 144 mmol/L Potassium Level 3.7 mmol/L Chloride Level 108 mmol/L Carbon Dioxide Level 26 mmol/L Anion Gap 10.0 mmol/L Blood Urea Nitrogen 15 mg/dl Creatinine 1.10 mg/dl Est Creatinine Clear Calc Drug Dose 58.1 ml/min Estimated GFR () 75.7 Estimated GFR (Non- 65.3 BUN/Creatinine Ratio 13.2 Random Glucose 84 mg/dl Calcium Level 9.0 mg/dl Magnesium Level 1.7 mg/dl (Lana Patel PA-C) Assessment and Plan 76 yo M admitted with chest tightness and radiation to left upper extremity/ hypertension- Chest Tightness - Dopplers completed with retrograde flow within the left vertebral artery. Antegrade flow in the right vertebral artery. Mild calcified plaque within the bilateral carotid bifurcations No hemodynamically significant stenosis seen within the carotid arteries. - Troponin x 3 negative - Cardiology on board - appreciate - dobutamine stress echo today. If abnormal, will consider coronary angiography. - Follows with Dr. Ron as an outpatient, plan for follow up within 2 weeks after discharge. - Possible that arm and hand tingling are from PAD, as the patient experiences sx at rest, and has had this chronically. Has a remote smoking history of 20 years 1/2 ppd, then followed with pipe smoking x 10 years after that. - continue ASA 81 mg by mouth daily, amlodipine 2.5 mg by mouth daily, lisinopril 20 mg by mouth daily, and metoprolol succinate 50 mg by mouth twice a day. Hypercholesterolemia- -continue atorvastatin 80 mg by mouth daily. Diabetes mellitus- -continue Lantus insulin 25 units subcutaneous every afternoon, and hold metformin 500 mg by mouth twice a day. - Accu-Cheks ACHS with NovoLog coverage. GERD- -continue pantoprazole 40 mg by mouth twice a day. BPH- -continue tamsulosin 0.4 mg by mouth daily, will need to monitor closely if nitroglycerin or added to his regimen. Vitamin B12 deficiency- -continue 1000 g by mouth every morning supplement. COPD --continue Spiriva 1 inhalation every morning, and pro-air HFA 2 puffs 4 times a day when necessary instead of Respiclick. CODE STATUS: FULL CODE DVT ppx: Teds, SCD, oob Disposition: From home, likely discharge today if stress test results are negative. (Lana Patel, MANDA) Reviewed: Pt Seen/Exam by Me (Holley Hernandez MD) History see discharge summary (Holley Hernandez MD)
--- NOTE | 2017-02-04 12:38 | Discharge Instructions ---
Discharge Instructions Date of Service Feb 04, 2017. (Lana Patel PA-C) Admission Reason for Admission: Chest Pain Radiating To Arm (Lana Patel PA-C) Discharge Discharge Diagnosis / Problem: Chest tightness (Lana Patel PA-C) Discharge Goals Goal(s): Decrease discomfort, Improve function, Increase independence, Improve disease control (aLna Patel PA-C) Activity Recommendations Activity Limitations: as noted below Lifting Limitations: gradually increase as tolerated Exercise/Sports Limitations: gradually increase as tolerated May Resume Sexual Activity: after follow-up appointment Shower/Bathe: no limitations Driving or Machine Use: no limitations . (Lana Patel PA-C) Instructions / Follow-Up Instructions / Follow-Up You were admitted to [facility] with chest tightness and numbness of the left hand/ arm and diagnosed with chest pain and peripheral artery disease. During your stay here blood work was trended (troponin) and was negative for any signs of ischemia (lack of blood supply). Imaging studies including: - ultrasound of your carotid arteries, upper extremity and lower extremities were completed and did not show significant stenosis (occlusion) which would require surgical intervention. - Chest x-ray was completed and was negative for any acute findings. - A dobutamine stress test was completed and was negative for any acute findings associated with ischemia and/or dysfunction of your heart wall or valves. Continue taking your medications as prescribed above. Follow up with your Primary Care Provider within 1 week. Follow up with Cardiology within 1-2 weeks. (Lana Patel PA-C) Current Hospital Diet Patient's current hospital diet: Diabetes Type 2 Diet (Lana Patel PA-C) Discharge Diet Recommended Diet: AHA Diet (Heart Healthy), Diabetes Type 2 Diet (Lana Patel PA-C) Procedures Procedures Performed: Dobutamine Stress Test Carotid artery and upper extremity ultrasound Chest X ray Lower extremity ultrasound (Lana Patel PA-C) Pending Studies Studies pending at discharge: no (Lana Patel PA-C) Laboratory Results Hemoglobin A1c Test 1/25/17 09:11 Range/Units Estimated Average Glucose 194 mg/dl Hemoglobin A1c 8.4 H 4.5-5.6 % (Lana Patel PA-C) Medical Emergencies . Who to Call and When: Medical Emergencies: If at any time you feel your situation is an emergency, please call 911 immediately. . (Lana Patel PA-C) Non-Emergent Contact Non-Emergency issues call your: Primary Care Provider, User Experience Manager Call Non-Emergent contact if: you have a fever, temperature is above 100.5 You have chest pain, chest tightness, shortness of breath, abdominal pain, nausea, vomiting, diarrhea, constipation, lightheadedness or dizziness, or if you have other concerns related to your health. . (Lana Patel PA-C) Past History Medical & Surgical History: (1) Hypoxia (2) Chest pain radiating to arm (Lana Patel PA-C) . "Provider Documentation" section prepared by Char Patel. (Lana Patel PA-C) VTE Core Measure Inpt VTE Proph given/why not?: Kavita Pendleton, SCD's (Lana Patel PA-C)
--- NOTE | 2017-02-04 12:50 | ECHOCARDIOGRAM REPORT ---
*NOTICE TO RECEIVING [employer] This information is strictly Confidential and protected under [place] law. [place] law prohibits you from making any further disclosure of this information unless further disclosure is expressly permitted by the written consent of the person to whom it pertains or is authorized by law. A general authorization for the release of medical or other information is not sufficient for this purpose. Hospital accepts no responsibility if the information is made available to any other person, INCLUDING THE PATIENT. Interpretation Summary * Name: ERIKA CALLAHAN Study Date: 02/04/2017 07:06 AM BP: 171/76 mmHg * Patient Location: [facility]\S\N281\S\1 HR: 63 * : 1940 (M/d/yyyy) Gender: Male Height: 69 in * Age: 76 yrs Ethnicity: [place] Weight: 180 lb * Ordering Physician: Tal Mckeon * Referring Physician: MARA * Performed By: Dominique Harrell RDCS * * Reason For Study: CHEST PAIN * BSA: 2.0 m2 * History: CHEST PAIN * -- Conclusions -- * 1. Normal LV size. Borderline concentric LVH. * 2. Normal LV systolic function. LVEF 55-60%. No regional wall motion abnormalities. * 3. Normal RV size and function. * 4. No significant valvular pathology. * 5. Grade I diastolic dysfunction. * 6. No prior studies for comparison. Procedure Details * A complete two-dimensional transthoracic echocardiogram was performed (2D, M-mode, Doppler and color flow Doppler). Left Ventricle * The left ventricle is grossly normal size. * There is borderline concentric left ventricular hypertrophy. * Ejection Fraction = 55-60%. * No regional wall motion abnormalities noted. Right Ventricle * The right ventricle is grossly normal size. * The right ventricular systolic function is normal. Atria * The left atrial size is normal. * Right atrial size is normal. * No ASD detected; PFO is not assessed. Mitral Valve * The mitral valve is grossly normal. * There is no mitral valve stenosis. * Significant mitral regurgitation is absent. Tricuspid Valve * The tricuspid valve is not well visualized, but is grossly normal. * There is no tricuspid stenosis. * Significant tricuspid regurgitation is absent. Aortic Valve * The aortic valve opens well. * The aortic valve is trileaflet. * No hemodynamically significant valvular aortic stenosis. * There is no significant aortic regurgitation. Pulmonic Valve * The pulmonary valve is not well seen, but the Doppler examination is normal without significant regurgitation or stenosis. Great Vessels * The aortic root and proximal ascending aorta are normal sized. Pericardium/Pleural * There is no pericardial effusion. Great Vessels * Normal inferior vena cava size and collapsability with sniff indicates a normal right atrial pressure of 3 mmHg Left Ventricular Diastolic Function * Grade I diastolic dysfunction, (abnormal relaxation pattern). MMode 2D Measurements and Calculations IVSd 1.1 cm IVSs 1.4 cm LVIDd 4.6 cm LVIDs 3.2 cm LVPWd 0.96 cm LVPWs 1.6 cm IVS/LVPW 1.1 FS 29.2 % EDV(Teich) 95.5 ml ESV(Teich) 42.0 ml EF(Teich) 56.1 % EDV(cubed) 95.0 ml ESV(cubed) 33.7 ml EF(cubed) 64.5 % % IVS thick 29.4 % % LVPW thick 69.7 % LV mass(C)d 163.7 grams LV mass(C)dI 82.9 grams/m\S\2 LV mass(C)s 179.5 grams LV mass(C)sI 90.9 grams/m\S\2 SV(Teich) 53.6 ml SI(Teich) 27.1 ml/m\S\2 SV(cubed) 61.3 ml SI(cubed) 31.0 ml/m\S\2 Ao root diam 3.0 cm Ao root area 7.1 cm\S\2 LA dimension 4.0 cm LA/Ao 1.3 LVAd ap4 31.0 cm\S\2 LVLd ap4 8.1 cm EDV(MOD-sp4) 97.0 ml EDV(sp4-el) 101.4 ml LVAs ap4 17.9 cm\S\2 LVLs ap4 7.0 cm ESV(MOD-sp4) 40.7 ml ESV(sp4-el) 40.3 ml EF(MOD-sp4) 58.0 % EF(sp4-el) 60.2 % LVAd ap2 25.9 cm\S\2 LVLd ap2 8.0 cm EDV(MOD-sp2) 69.9 ml LVAs ap2 15.3 cm\S\2 LVLs ap2 7.2 cm ESV(MOD-sp2) 28.5 ml EF(MOD-sp2) 59.2 % SV(MOD-sp4) 56.3 ml SI(MOD-sp4) 28.5 ml/m\S\2 SV(MOD-sp2) 41.4 ml SI(MOD-sp2) 21.0 ml/m\S\2 SV(sp4-el) 61.1 ml SI(sp4-el) 30.9 ml/m\S\2 Doppler Measurements and Calculations MV E max clarissa 82.0 cm/sec MV A max clarissa 87.8 cm/sec MV E/A 0.93 MV dec time 0.23 sec Ao V2 max 112.5 cm/sec Ao max PG 5.1 mmHg Ao max PG (full) 2.5 mmHg LV V1 max PG 2.6 mmHg LV V1 max 80.5 cm/sec
--- NOTE | 2017-02-04 12:57 | Discharge Summary ---
Discharge Summary Date of Service Feb 04, 2017. (Lana Patel PA-C) Discharge Summary Admission Date: Feb 03, 2017 at 15:46 Discharge Date: Feb 04, 2017 Discharge Disposition: Home with services Principal Diagnosis: Chest tightness, chest pain Problems/Secondary Diagnoses: CAD, peripheral artery disease, DM II, hx of tobacco use, GERD, BPH, vitamin B deficiency, COPD, hyperlipidemia Procedures: Echocardiogram 02/04/17 * -- Conclusions -- * 1. Normal LV size. Borderline concentric LVH. * 2. Normal LV systolic function. LVEF 55-60%. No regional wall motion abnormalities. * 3. Normal RV size and function. * 4. No significant valvular pathology. * 5. Grade I diastolic dysfunction. * 6. No prior studies for comparison. CHEST ONE VIEW PORTABLE CLINICAL HISTORY: chest pain and SOB dyspnea COMPARISON STUDY: 07/11/2013 FINDINGS: The bones soft tissues and hemidiaphragms are normal. The cardiomediastinal silhouette is normal. The lungs are clear. The pulmonary vasculature is normal. IMPRESSION: Negative chest. Electronically signed by: Alexx Berger M.D. 02/03/2017 11:29 AM Dictated Date/Time: 02/03/2017 11:29 AM The status of this report is Signed. BILATERAL LOWER EXTREMITY VENOUS DOPPLER CLINICAL HISTORY: Bilateral lower extremity edema. Chest tightness. COMPARISON STUDY: No previous studies for comparison. TECHNIQUE: Sonography of the deep venous system of the bilateral lower extremities was performed. Compression and augmentation were evaluated. FINDINGS: The bilateral common femoral, superficial femoral and popliteal veins were compressible. Augmentation was normal. Flow was shown within the deep calf vessels. IMPRESSION: No evidence of deep venous thrombus within the bilateral lower extremities. Electronically signed by: Nilay Roman M.D. 02/03/2017 2:02 PM Dictated Date/Time: 02/03/2017 2:01 PM The status of this report is Signed. LEFT UPPER EXTREMITY ARTERIAL DOPPLER STUDY HISTORY: carotid to LUE bypass, tingling in left hand COMPARISON STUDY: None. FINDINGS: Normal velocities and waveforms within the left common carotid artery. There is retrograde flow within the left vertebral artery. Monophasic but normal velocity waveforms seen within the left subclavian, axillary, and brachial arteries. Monophasic low velocity waveforms seen within the radial artery of 14 cm/s in the ulnar artery of 12 cm/s. IMPRESSION: 1. Monophasic but normal velocity waveforms seen within the left subclavian, axillary, brachial arteries. This could be due to the bypass. 2. Monophasic and low velocity waveforms seen within the radial and ulnar artery suggestive of diminished flow. 3. Retrograde flow within the left vertebral artery. Electronically signed by: Antione Santos M.D. 02/03/2017 5:56 PM Dictated Date/Time: 02/03/2017 5:53 PM The status of this report is Signed. [~ rep ct add3]] BILATERAL CAROTID DOPPLER STUDY HISTORY: Right arm numbness. carotid to axillary and to subclavian bypass COMPARISON: None. TECHNIQUE: Real-time, grayscale, and color Doppler sonography of the carotid arteries was performed. Imaging reviewed in the transverse and longitudinal planes. All measurements were calculated based on NASCET criteria. FINDINGS: Retrograde flow within the left vertebral artery. Antegrade flow in the right vertebral artery. Mild calcified plaque within the bilateral carotid bifurcations. The peak systolic velocity within the right ICA is 108 cm/s. The right systolic ratio is 1.3. The peak systolic velocity within the left ICA is 97 cm/s. The left systolic ratio is 1.1. IMPRESSION: No hemodynamically significant stenosis seen within the carotid arteries. Retrograde flow within the left vertebral artery. Electronically signed by: Antione Santos M.D. 02/03/2017 6:02 PM Dictated Date/Time: 02/03/2017 6:00 PM The status of this report is Signed. Consultations: Cardiology (Lana Patel, MANDA) Procedures: Dobutamine Sterss ECHO: -- Conclusions -- * 1. Negative dobutamine stress echocardiogram for ischemia at 99% MPHR. * 2. Negative stress ECG for ischemia. * 3. Normal resting LV size and function. See full echo report from 2016 for details. (Holley Hernandez MD) Medication Reconciliation Continued Medications: Albuterol Sulfate (Proair Respiclick) 108 Mcg/Act Aer 2 PUFF INH Alprazolam (Alprazolam) 0.25 Mg Tab 1 TAB PO DAILY PRN for Anxiety Amlodipine (Norvasc) 2.5 Mg Tab 2.5 MG PO DAILY, TAB Aspirin (Aspirin Ec) 81 Mg Tab 81 MG PO QAM Atorvastatin (Lipitor) 80 Mg Tab 80 MG PO DAILY, TAB Cholecalciferol (Vitamin D3) 2,000 Unit Cap 1 CAP PO QAM Cyanocobalamin (Vitamin B-12) 1,000 Mcg Tab 1000 MCG PO QAM, TAB Insulin Aspart (Novolog Flexpen) 100 Units/Ml Inj sliding scale +7 Insulin Glargine (Lantus) 100 Unit/Ml Inj 25 UNITS SC QPM, VIAL Lisinopril (Zestril) 20 Mg Tab 20 MG PO DAILY, TAB Loratadine (Claritin) 10 Mg Tab 10 MG PO DAILY PRN PRN ALLERGY SYMPTOMS Metformin Hcl (Glucophage) 500 Mg Tab 500 MG PO BID, TAB Metoprolol Succinate (Toprol Xl) 50 Mg Tabcr 50 MG PO BID, TAB Misc Natural Products (Osteo Bi-Flex Joint Shiel) 1 Tab Tab 1 TAB PO BID Pantoprazole (Protonix) 40 Mg Tab 40 MG PO BID, TAB Tamsulosin Hcl (Flomax) 0.4 Mg Cap 0.4 MG PO DAILY, CAP Tiotropium Maxwell (Spiriva Handihaler) 30 Puff/540 Mcg Aerp 1 CAP INH DAILY, INHALER Discharge Exam The patient was seen and examined this morning. Pt reports doing well, he has no cardiac complaints today. Denies having episode of chest pressure or tightness since initially admitted. He denies shortness of breath. Pt had cardiac stress test completed this morning. Review of Systems: Constitutional: No chills, No fatigue, No fever Eyes: No diplopia, No discharge ENT: No sore throat, No trouble swallowing Respiratory: No cough, No dyspnea at rest, No dyspnea on exertion, No shortness of breath Cardiovascular: No chest pain, No palpitations Abdomen: No constipation, No diarrhea, No nausea, No pain, No vomiting Musculoskeletal: No calf pain, No joint pain, No swelling Genitourinary - Male: No dysuria, No hematuria Neurologic: No balance problems, No weakness Endocrine: No fatigue, No problem reported Integumentary: No itch, No rash Physical Exam: General Appearance: WD/WN, no apparent distress, + thin Eyes: PERRL, EOMI ENT: hearing grossly normal, pharynx normal Neck: supple, no JVD Respiratory/Chest: lungs clear, no respiratory distress, no accessory muscle use Cardiovascular: regular rate, rhythm, normal peripheral pulses Abdomen / GI: normal bowel sounds, non tender, soft, no organomegaly Extremities: no calf tenderness, no pedal edema Neurologic/Psychiatric: alert, normal reflexes, oriented x 3 Skin: normal color, warm/dry (Lana Patel, MANDA) Hospital Course 76 yo M admitted with chest tightness and radiation to left upper extremity/ hypertension- Chest Tightness - Dopplers completed with retrograde flow within the left vertebral artery. Antegrade flow in the right vertebral artery. Mild calcified plaque within the bilateral carotid bifurcations No hemodynamically significant stenosis seen within the carotid arteries. - Troponin x 3 negative - Cardiology on board - appreciate - dobutamine stress echo completed * -- Conclusions -- * 1. Normal LV size. Borderline concentric LVH. * 2. Normal LV systolic function. LVEF 55-60%. No regional wall motion abnormalities. * 3. Normal RV size and function. * 4. No significant valvular pathology. * 5. Grade I diastolic dysfunction. * 6. No prior studies for comparison. If abnormal, will consider coronary angiography. - Follows with Dr. Ron as an outpatient, plan for follow up within 1-2 weeks after discharge. - Possible that arm and hand tingling are partially from peripheral artery disease, as the patient experiences sx at rest, and has had this chronically. Has a remote smoking history of 20 years 1/2 ppd, then followed with pipe smoking x 10 years after that, patient quit smoking 20 years ago. - continue ASA 81 mg by mouth daily, amlodipine 2.5 mg by mouth daily, lisinopril 20 mg by mouth daily, and metoprolol succinate 50 mg by mouth twice a day. Hypercholesterolemia- -continue atorvastatin 80 mg by mouth daily. Diabetes mellitus- -continue Lantus insulin 25 units subcutaneous every afternoon, and hold metformin 500 mg by mouth twice a day. - Accu-Cheks ACHS with NovoLog coverage. GERD- -continue pantoprazole 40 mg by mouth twice a day. BPH- -continue tamsulosin 0.4 mg by mouth daily, will need to monitor closely if nitroglycerin or added to his regimen. Vitamin B12 deficiency- -continue 1000 g by mouth every morning supplement. COPD --continue Spiriva 1 inhalation every morning, and pro-air HFA 2 puffs 4 times a day when necessary instead of Respiclick. CODE STATUS: FULL CODE Disposition: From home, Discharge home today Follow up with cardiology within 1-2 weeks Follow-up with family physician within 1 week Total Time Spent: Greater than 30 minutes This includes examination of the patient, discharge planning, medication reconciliation, and communication with other providers. (Lana Patel PA-C) Discharge Instructions Please refer to the electronic Patient Visit Report (Discharge Instructions) for additional information. (Lana Patel PA-C) Follow-Up Follow up with your Primary Care Provider within 1 week. Follow up with Cardiology within 1-2 weeks. (Lana Patel PA-C) Additional Copies To Benitez Lau M.D. Reviewed: Pt Seen/Exam by Me (Holley Hernandez MD) History Physician [employer] Sales Associate Supervision Note: I interviewed and examined the patient. Discussed with JERRICA Patel and agree with findings and plan as documented in the note. Any exceptions or clarifications are listed here: Pt had substernal sharp chest pain after a very hard coughing spell 2 days prior to admission. The next day he then had atypical intermittent substernal CP at rest, with some reproduction of his typical left arm claudication symptoms. The constellation of symptoms worried him. He ruled out for ACS, had a normal dobutamine stress ECHO, and no recurrence of his symptoms. Cardiology saw him and felt this was atypical. I feel this is likely MSK in nature secondary to coughing causing strain of costochondral region perhaps. His vascular issues are all stable Vitals and tele reviewed and no significant findings RRR no mgr, 1+ left radial pulse, 2+ right radial pulse, no real chest wall tenderness CTAB no wcr CP, noncardiac, ok for dc to home Documented By: Holley Hernandez (Holley Hernandez MD)
--- NOTE | 2017-02-04 13:17 | DOBUTAMINE ECHO ---
*NOTICE TO RECEIVING [employer] This information is strictly Confidential and protected under [place] law. [place] law prohibits you from making any further disclosure of this information unless further disclosure is expressly permitted by the written consent of the person to whom it pertains or is authorized by law. A general authorization for the release of medical or other information is not sufficient for this purpose. Hospital accepts no responsibility if the information is made available to any other person, INCLUDING THE PATIENT. Interpretation Summary * Name: ERIKA CALLAHAN Study Date: 02/04/2017 10:16 AM BP: 173/62 mmHg * Patient Location: [facility]\S\N281\S\1 HR: 63 * : 1940 (M/d/yyyy) Gender: Male Height: 69 in * Age: 76 yrs Ethnicity: [place] Weight: 173 lb * Ordering Physician: Abel Thompson * Referring Physician: Benitez Lau * Performed By: Sharlene Chang [facility] * * Reason For Study: Chest Pain * BSA: 1.9 m2 * -- Conclusions -- * 1. Negative dobutamine stress echocardiogram for ischemia at 99% MPHR. * 2. Negative stress ECG for ischemia. * 3. Normal resting LV size and function. See full echo report from 02/04/2017 for details. Procedure Details * DOBUTAMINE ECHO, CPT#54056 Stress Parameters * Normal baseline electrocardiogram. * Stress ECG: No ST changes. No arrhythmias. * Rest heart rate was '63' BPM. * Rest blood pressure was '173/62' * Maximum heart rate achieved was 144 bpm. * Maximum heart rate was 99 % of maximum age-predicted heart rate. * Maximum blood pressure was '193/49' * Maximum Dobutamine infusion rate was '50' mcg/kg/min. * A total of .25 mg of intravenous Atropine was used to supplement Dobutamine for heart rate response. * Dobutamine infusion was terminated due to achieving target heart rate * A total of 5 mg of IV Metoprolol was administered to reverse Dobutamine-induced tachycardia. * The patient did not exhibit any symptoms during drug infusion.
[2017-02-04] MEDS ORDERED: IV FLUIDS COMPLETED PRN (15:45)
== END 2017-02-04 15:00 | disposition home or self-care (01) | DRG 313 ==
LOC: ENRESERVTM → ENRESERVDT → C.EDB 10:43 → C.MED 15:46 → EDBEDREQ 16:41
PROVIDERS: ADMIT Hospitalist; ATTEND Family Medicine
DX: R07.89 Other chest pain (principal); J44.9 Chronic obstructive pulmonary disease, unspecified; K21.9 Gastro-esophageal reflux disease without esophagitis; N40.0 Benign prostatic hyperplasia without lower urinary tract symptoms; E53.8 Deficiency of other specified B group vitamins; I25.10 Atherosclerotic heart disease of native coronary artery without angina pectoris; E78.00 Pure hypercholesterolemia, unspecified; R09.02 Hypoxemia; E78.5 Hyperlipidemia, unspecified; I10 Essential (primary) hypertension; E11.9 Type 2 diabetes mellitus without complications; I73.9 Peripheral vascular disease, unspecified; Z87.891 Personal history of nicotine dependence; Z79.4 Long term (current) use of insulin; Z79.82 Long term (current) use of aspirin; Z79.84 Long term (current) use of oral hypoglycemic drugs; Z79.899 Other long term (current) drug therapy

== ENCOUNTER → 2017-03-03 | Outpatient (CLI) | payer BC ==
[~2017-03-03] MED LIST changes: +ALBU18002 INH; +ALPR-412 PO; -AMLO-114 PO; +AMLO2.5T PO; -AMR2 PO; -ATOR-24 PO; +ATOR-26 PO; -AVD5 PO; +CHOL2000 PO; -CIPR-255 PO; -CLOP1TAB54 PO; +CYAN10005 PO; -FLUT0.0529 NAE; +GLC/500 PO; +INSDGI SC; +LISI-725 PO; -LISI40TA PO; +MISCTAB30 PO; +NVLGI/PEN; +SPRIN/30 INH; +TAMS0.4C38 PO; -TAMS0.4C59 PO; -TIOTCAP INH; -XNX25 PO; -janumet PO; -osteo biflex PO
== END | disposition home or self-care (01) ==
LOC: C.PATHSPEC 17:19
PROVIDERS: ATTEND Urology
DX: N40.0 Benign prostatic hyperplasia without lower urinary tract symptoms (principal)

== ENCOUNTER → 2017-04-11 | Outpatient (CLI) | payer BC ==
[2017-04-11 13:13] LABS: URINE APPEARANCE CLEAR (CLEAR); URINE BILIRUBIN NEG (NEG); URINE COLOR DK YELLOW; URINE NITRITE NEG (NEG); URINE SPECIFIC GRAVITY 1.021 (1.000-1.030); UROBILINOGEN NEG (NEG); ZZUR CULT IF INDIC CLEAN CATCH NO
[2017-04-11 13:27] LABS: MANUAL MICROSCOPIC REQUIRED? NO; REVIEW REQ? NO
[2017-04-11 13:31] LABS: ESTIMATED AVERAGE GLUCOSE 189 mg/dl; HA1C FLAG Normal (Normal)
[2017-04-11 14:49] LABS: BLOOD UREA NITROGEN 18 mg/dl (7-18); BUN/CREATININE RATIO 13.9 (10-20); CALCIUM 9.4 mg/dl (8.5-10.1); CARBON DIOXIDE 29 mmol/L (21-32); CHLORIDE 107 mmol/L (98-107); GLUCOSE 208 mg/dl (70-99); MAGNESIUM 1.8 mg/dl (1.8-2.4); POTASSIUM 4.6 mmol/L (3.5-5.1); SODIUM 142 mmol/L (136-145)
== END | disposition home or self-care (01) ==
LOC: C.LABMFLN 14:45
PROVIDERS: ATTEND Family Medicine
DX: I10 Essential (primary) hypertension (principal); E11.65 Type 2 diabetes mellitus with hyperglycemia

== ENCOUNTER → 2017-07-15 | Outpatient (CLI) | payer BC ==
[2017-07-15 14:00] LABS: ESTIMATED AVERAGE GLUCOSE 197 mg/dl; HA1C FLAG Normal (Normal)
[2017-07-15 14:07] LABS: ALT/SGPT 20 U/L (12-78); AST/SGOT 16 U/L (15-37); BLOOD UREA NITROGEN 14 mg/dl (7-18); BUN/CREATININE RATIO 9.3 (10-20); CALCIUM 9.2 mg/dl (8.5-10.1); CARBON DIOXIDE 27 mmol/L (21-32); CHLORIDE 103 mmol/L (98-107); GLUCOSE 179 mg/dl (70-99); POTASSIUM 4.4 mmol/L (3.5-5.1); SODIUM 137 mmol/L (136-145)
[2017-07-15 14:09] LABS: ALB/GLOB RATIO 0.9 (0.9-2); ALKALINE PHOSPHATASE 124 U/L (45-117); CHOLESTEROL 94 mg/dl (0-200); CHOLESTEROL/HDL RATIO 2.2; HDL CHOLESTEROL 42 mg/dl; LDL CHOLESTEROL CALCULATED 31 mg/dl; TRIGLYCERIDES 104 mg/dl (0-150); VERY LOW DENSITY LIPOPROT CALC 21 mg/dl
== END | disposition home or self-care (01) ==
LOC: C.LABMFLN 09:33
PROVIDERS: ATTEND Family Medicine
DX: I10 Essential (primary) hypertension (principal); E11.65 Type 2 diabetes mellitus with hyperglycemia

== ENCOUNTER → 2017-07-26 | Outpatient (CLI) | payer BC | END | disposition home or self-care (01) | LOC: C.LABMFLN 10:50 | PROVIDERS: ATTEND Family Medicine | DX: E11.65 Type 2 diabetes mellitus with hyperglycemia (principal) ==

== ENCOUNTER → 2017-09-08 | Outpatient (CLI) | payer BC | END | disposition home or self-care (01) | LOC: C.PATHSPEC 16:59 | PROVIDERS: ATTEND Urology | DX: C67.9 Malignant neoplasm of bladder, unspecified (principal) ==

== ENCOUNTER → 2017-10-26 | Outpatient (CLI) | payer BC ==
[2017-10-26 18:22] LABS: BLOOD UREA NITROGEN 15 mg/dl (7-18); BUN/CREATININE RATIO 10.4 (10-20); CALCIUM 9.2 mg/dl (8.5-10.1); CARBON DIOXIDE 30 mmol/L (21-32); CHLORIDE 105 mmol/L (98-107); CREATININE 1.45 mg/dl (0.60-1.40); GLUCOSE 100 mg/dl (70-99); POTASSIUM 4.1 mmol/L (3.5-5.1); SODIUM 138 mmol/L (136-145)
[2017-10-27 06:42] LABS: ESTIMATED AVERAGE GLUCOSE 200 mg/dl; HA1C FLAG Normal (Normal)
== END | disposition home or self-care (01) ==
LOC: C.LABMFLN 13:33
PROVIDERS: ATTEND Family Medicine
DX: E11.65 Type 2 diabetes mellitus with hyperglycemia (principal)

== ENCOUNTER → 2018-01-23 | Outpatient (CLI) | payer BC ==
[~2018-01-23] MED LIST changes: -LORA10TA5 PO; +LORA10TA6 PO
[2018-01-23 12:38] LABS: BASO % 0.2 %; BASO ABS # 0.02 K/uL (0-0.2); EOS % 4.7 %; EOS ABS # 0.41 K/uL (0-0.5); HEMATOCRIT 41.4 % (42-52); HEMOGLOBIN 13.8 g/dL (14.0-18.0); IG# 0.03 K/uL (0.00-0.02); LYMPH % 17.7 %; LYMPH ABS # 1.54 K/uL (1.2-3.4); MEAN CELL VOLUME 88.5 fL (80-100); MEAN CORPUSCULAR HEMOGLOBIN 29.5 pg (25-34); MEAN CORPUSCULAR HGB CONC 33.3 g/dl (32-36); MEAN PLATELET VOLUME 10.9 fL (7.4-10.4); MONO % 8.6 %; MONO ABS # 0.75 K/uL (0.11-0.59); NEUT % 68.5 %; NEUT ABS # 5.94 K/uL (1.4-6.5); PLATELET COUNT 268 K/uL (130-400); RED CELL DISTRIBUTION WIDTH CV 13.5 % (11.5-14.5); RED CELL DISTRIBUTION WIDTH SD 43.7 fL (36.4-46.3); WHITE BLOOD COUNT 8.69 K/uL (4.8-10.8)
[2018-01-23 14:36] LABS: ALBUMIN 3.3 gm/dl (3.4-5.0); ALT/SGPT 19 U/L (12-78); BLOOD UREA NITROGEN 16 mg/dl (7-18); CALCIUM 9.3 mg/dl (8.5-10.1); CARBON DIOXIDE 30 mmol/L (21-32); CHOLESTEROL 95 mg/dl (0-200); CREATININE 1.41 mg/dl (0.60-1.40); GLUCOSE 193 mg/dl (70-99); POTASSIUM 4.2 mmol/L (3.5-5.1); SODIUM 138 mmol/L (136-145)
[2018-01-23 14:39] LABS: ALKALINE PHOSPHATASE 114 U/L (45-117); AST/SGOT 12 U/L (15-37); LDL CHOLESTEROL CALCULATED 46 mg/dl; TOTAL PROTEIN 6.7 gm/dl (6.4-8.2)
[2018-01-24 12:10] LABS: HEMOGLOBIN A1C 8.1 % (4.5-5.6)
== END | disposition home or self-care (01) ==
LOC: C.LABMFLN 09:21
PROVIDERS: ATTEND Family Medicine
DX: I10 Essential (primary) hypertension (principal); E78.5 Hyperlipidemia, unspecified; I25.10 Atherosclerotic heart disease of native coronary artery without angina pectoris; E53.8 Deficiency of other specified B group vitamins; E55.9 Vitamin D deficiency, unspecified; E11.65 Type 2 diabetes mellitus with hyperglycemia